=== PATIENT | female | born 1965 | race American Indian/Alaskan Native ===

== ENCOUNTER 2016-08-20 16:00 | Emergency (ER) | payer SELFPAY ==
[2016-08-20] MEDS ORDERED: MOTRIN PO ONE (19:37)
--- NOTE | 2016-08-20 19:38 | Emergency Department Report ---
ED Lower Extremity HPI - General Chief Complaint: Extremity Injury, Lower Stated Complaint: LT KNEE PAIN/SWELLING Time Seen by Provider: 08/20/16 18:26 Source: patient Mode of arrival: Ambulatory Limitations: No Limitations - History of Present Illness Initial Comments: 51-year-old female past medical history hypertension, osteoarthritis, left knee meniscus repair presents with complaint of left foot swelling 2-3 days. She denies any fevers chills, denies any direct trauma to foot no falls. Patient is ambulatory without assistance. Visible swelling to top of left foot. Patient denies any significant pain but states that she has noticed the swelling in this region. Denies taking any medicines for the swelling. No history of gout or DVT as per the patient. MD Complaint: other (left foot swelling) Onset/Timin -: days(s) Injury: Foot: Left Severity: mild Worsens With: nothing Context: other (spontaneous) Associated Symptoms: swelling (swelling to the top of left foot), ambulatory ( patient is ambulatory without assistance) - Related Data Previous Rx's Medication Instructions Recorded Last Taken Type Gentamicin 0.3% Ophth Soln 2 drops OP Q8H #1 bottle 03/27/16 Unknown Rx Naproxen [Naprosyn TAB] 375 mg PO BID PRN #20 tablet 08/20/16 Unknown Rx Allergies Allergy/AdvReac Type Severity Reaction Status Date / Time No Known Allergies Allergy Unverified 03/27/16 14:20 ED Review of Systems ROS: Stated complaint: LT KNEE PAIN/SWELLING Other details as noted in HPI Constitutional: denies: chills, fever Eyes: denies: eye pain, eye discharge, vision change ENT: denies: ear pain, throat pain Respiratory: denies: cough, shortness of breath, wheezing Cardiovascular: denies: chest pain, palpitations Endocrine: no symptoms reported Gastrointestinal: denies: abdominal pain, nausea, diarrhea Genitourinary: denies: urgency, dysuria, discharge Musculoskeletal: as per HPI (swelling to the top of left foot 3 days). denies : back pain, joint swelling, arthralgia Skin: denies: rash, lesions Neurological: denies: headache, weakness, paresthesias Psychiatric: denies: anxiety, depression Hematological/Lymphatic: denies: easy bleeding, easy bruising ED Past Medical Hx - Past Medical History Hx Hypertension: Yes Hx Arthritis: Yes (osteoarthritis) - Surgical History Additional Surgical History: left knee meniscus - Social History Smoking Status: Never Smoker Substance Use Type: None - Medications Home Medications: Home Medications Medication Instructions Recorded Confirmed Last Taken Type Gentamicin 0.3% Ophth Soln 2 drops OP Q8H #1 bottle 03/27/16 Unknown Rx Naproxen [Naprosyn TAB] 375 mg PO BID PRN #20 tablet 08/20/16 Unknown Rx ED Physical Exam - General Limitations: No Limitations General appearance: alert, in no apparent distress - Head Head exam: Present: atraumatic, normocephalic - Eye Eye exam: Present: normal appearance, PERRL, EOMI - ENT ENT exam: Present: mucous membranes moist - Neck Neck exam: Present: normal inspection, full ROM - Respiratory Respiratory exam: Present: normal lung sounds bilaterally. Absent: respiratory distress - Cardiovascular Cardiovascular Exam: Present: regular rate, normal rhythm. Absent: systolic murmur, diastolic murmur, rubs, gallop - GI/Abdominal GI/Abdominal exam: Present: soft, normal bowel sounds - Extremities Exam Extremities exam: Present: normal inspection - Expanded Lower Extremity Exam Left Hip exam: Present: normal inspection, full ROM Upper Leg exam: Present: normal inspection, full ROM Knee exam: Present: normal inspection, full ROM Lower Leg exam: Present: normal inspection, full ROM Ankle exam: Present: normal inspection, full ROM (dorsiflexion and plantar flexion intact), swelling (swelling at top of left foot) Foot/Toe exam: Present: swelling (+1 pitting edema only and dorsal aspect of the left foot) Neuro vascular tendon exam: Present: no vascular compromise (distal dorsalis pedis and posterior tibial pulses strong to palpation and on bedside arterial Doppler study) Gait: Positive: observed and normal 1 - Swelling in this region approximately +1/+2. No erythema no warmth to touch no crepitus no visual cellulitis - Back Exam Back exam: Present: normal inspection - Neurological Exam Neurological exam: Present: alert, oriented X3, CN II-XII intact, normal gait - Psychiatric Psychiatric exam: Present: normal affect, normal mood - Skin Skin exam: Present: warm, dry, intact, normal color. Absent: rash ED Course Vital Signs 08/20/16 16:36 Temperature 98.7 F Pulse Rate 64 Respiratory 20 Rate Blood Pressure 174/105 O2 Sat by Pulse 100 Oximetry ED Lower Extremity MDM - Lab Data Result diagrams: 08/20/16 19:36 08/20/16 19:36 - Medical Decision Making A/P: Left foot swelling 1-no clinical signs of infection skin is not erythematous not hot to touch visible erythema. Patient is able to flex and extend the ankle without difficulty. Doppler applied to foot, strong dorsalis pedis and posterior tibial pulses detected. Distal sensation is intact. No clinical signs of gout 2-x-ray shows osteoarthritis no fractures, no subcutaneous emphysema. Swelling possibly due to osteoarthritis 3-CBC and BMP within normal limits 4- RICE therapy, Devan wrap, elevation, naproxen when necessary 5- I advised patient to return to the ED if she develops erythema fever or chills or if swelling increases. 1 points Low risk group for DVT. Unlikely according to [facility] DVT studies. Will give patient order form for outpatient lower extremity duplex for tomorrow morning. I advised her to return to [facility] for the test, patient stated that she would do so 6- patient has elevated blood pressure, creatinine within normal limits patient has no reports of dizziness headache shortness of breath nausea or abdominal pain chest pain palpitations or diaphoresis. Critical care attestation.: If time is entered above; I have spent that time in minutes in the direct care of this critically ill patient, excluding procedure time. ED Disposition Clinical Impression: Foot swelling Disposition: DC-01 TO HOME OR SELFCARE Is pt being admited?: No Does the pt Need Aspirin: No Condition: Stable Instructions: Osteoarthritis (ED), RICE Therapy (ED) Additional Instructions: Patient advised to return to Hospital tomorrow for lower extremity duplex study to rule out DVT Prescriptions: Naproxen [Naprosyn TAB] 375 mg PO BID PRN #20 tablet PRN Reason: Pain Referrals: REESE RAMON MD [Referring] - 3-5 Days JAVY CAMPOS DPM [Staff Physician] - 3-5 Days Forms: Work/School Release Form(ED) Time of Disposition: 22:04
[2016-08-20 19:53] LABS: Basophils % (Auto) 0.5 % (0.0-1.8); Eosinophils % (Auto) 2.2 % (0.0-4.3); Hematocrit 38.9 % (30.3-42.9); Hemoglobin 12.5 gm/dl (10.1-14.3); Mean Corpuscular HGB Conc 32 % (30-34); Mean Corpuscular Hemoglobin 28 pg (28-32); Mean Corpuscular Volume 87 fl (79-97); Platelet Count 303 K/mm3 (140-440); Red Blood Count 4.45 M/mm3 (3.65-5.03); Red Cell Distribution Width 13.5 % (13.2-15.2); White Blood Count 7.9 K/mm3 (4.5-11.0)
[2016-08-20 20:07] LABS: Anion Gap 15 mmol/L; Blood Urea Nitrogen 14 mg/dL (7-17); Carbon Dioxide 30 mmol/L (22-30); Chloride 102.3 mmol/L (98-107); Glucose 95 mg/dL (65-100); Potassium 4.2 mmol/L (3.6-5.0); Sodium 143 mmol/L (137-145)
--- NOTE | 2016-08-20 21:58 | XRay Report ---
FINAL REPORT PROCEDURE: XR FOOT 3 LT TECHNIQUE: LEFT foot radiographs, AP, lateral, and oblique views. CPT 29580 HISTORY: sig. soft tissue swelling left foot, upper portion COMPARISON: No prior studies are available for comparison. FINDINGS: Fracture (s) and/or Dislocation(s): None . Alignment: Normal . Joint space(s): Normal . Soft tissues: Moderate degree of soft tissue swelling is identified over the dorsal aspect.. Bone mineralization: Mild degree osteophyte formation is noted involving tibiotalar, inter tarsal and 1st tarsometatarsal. Foreign bodies: Joints.. Calcaneal spurring: Mild degree superior calcaneal spur is noted. IMPRESSION: No acute fracture Osteoarthritis .
[2016-08-20 22:30] VITALS: BP 186/95
== END 2016-08-20 22:30 | disposition home or self-care (01) ==
LOC: ED 16:00
DX: M79.89 Other specified soft tissue disorders (principal); I10 Essential (primary) hypertension
CPT/HCPCS: 36415; 80048; 85025; 99284

== ENCOUNTER 2019-01-08 20:20 | Emergency (ER) | payer MEDICARE ==
[2019-01-09] MEDS ORDERED: KETOROLAC 30 MG/1 ML INJ IM ONE (02:07)
--- NOTE | 2019-01-09 02:07 | Emergency Department Report ---
ED Back Pain/Injury HPI - General Chief Complaint: Back Pain/Injury Stated Complaint: SCIATICA NERVE PAIN Time Seen by Provider: 01/09/19 02:02 Source: patient Limitations: No Limitations - History of Present Illness Initial Comments: 53 year old obese female with a history of chronic pain presents to the emergency room complaining of right side lower back pain as 8 out of 10 that radiates from her lower back to her buttocks and down her right leg times one day. Patient reports she taken her OxyContin and Lexapro gabapentin. Patient reports that she is followed by pain management Dr. Westfall. Patient reports she does have a primary care provider has seen him as recently as 2 months. Patient's only on lisinopril for hypertension. Patient's blood pressure is 189/112 MD Complaint: back pain Onset/Timin -: days(s) Similar Symptoms Previously: Yes Radiation: buttocks, right leg Severity: severe Severity scale (0 -10): 8 Quality: sharp, crushing Improves With: none Worsens With: none Associated Symptoms: denies other symptoms - Related Data Previous Rx's Medication Instructions Recorded Last Taken Type Gentamicin 0.3% Ophth Soln 2 drops OP Q8H #1 bottle 03/27/16 Unknown Rx Naproxen [Naprosyn TAB] 375 mg PO BID PRN #20 tablet 08/20/16 Unknown Rx Allergies Allergy/AdvReac Type Severity Reaction Status Date / Time No Known Allergies Allergy Unverified 03/27/16 14:20 ED Review of Systems ROS: Stated complaint: SCIATICA NERVE PAIN Other details as noted in HPI Comment: All other systems reviewed and negative ED Past Medical Hx - Past Medical History Previous Medical History?: Yes Hx Hypertension: Yes Hx Arthritis: Yes (osteoarthritis) - Surgical History Past Surgical History?: Yes Additional Surgical History: left knee meniscus - Social History Smoking Status: Never Smoker Substance Use Type: None - Medications Home Medications: Home Medications Medication Instructions Recorded Confirmed Last Taken Type Gentamicin 0.3% Ophth Soln 2 drops OP Q8H #1 bottle 03/27/16 Unknown Rx Naproxen [Naprosyn TAB] 375 mg PO BID PRN #20 tablet 08/20/16 Unknown Rx ED Physical Exam - General Limitations: No Limitations General appearance: alert, obese - Head Head exam: Present: atraumatic, normocephalic - Eye Eye exam: Present: normal appearance - ENT ENT exam: Present: mucous membranes moist - Neck Neck exam: Present: normal inspection - Expanded Back Exam Expanded Back exam: Sciatic Notch Tenderness: Right, Positive Straight Leg Raise: Right - Neurological Exam Neurological exam: Present: alert, oriented X3 - Psychiatric Psychiatric exam: Present: normal affect, normal mood - Skin Skin exam: Present: warm, dry, intact, normal color. Absent: rash ED Course Vital Signs 01/08/19 01/09/19 20:28 02:19 Temperature 98.3 F Pulse Rate 91 H Respiratory 18 18 Rate Blood Pressure 189/112 O2 Sat by Pulse 98 Oximetry Critical care attestation.: If time is entered above; I have spent that time in minutes in the direct care of this critically ill patient, excluding procedure time. ED Disposition Clinical Impression: Sciatica of right side, Uncontrolled hypertension, Severely overweight Disposition: DC-01 TO HOME OR SELFCARE Is pt being admited?: No Does the pt Need Aspirin: No Condition: Stable Instructions: Hypertension (ED) Additional Instructions: Continue following with a Pain management.
[2019-01-09 03:09] VITALS: BP 167/87
== END 2019-01-09 03:05 | disposition home or self-care (01) ==
LOC: ED 20:20
DX: M54.31 Sciatica, right side (principal); I10 Essential (primary) hypertension; E66.3 Overweight; M19.90 Unspecified osteoarthritis, unspecified site; Z98.890 Other specified postprocedural states; Z79.899 Other long term (current) drug therapy
CPT/HCPCS: 96372; 99282; J1885; 99281